=== PATIENT | male | born 1965 | race African-American/Black ===

== ENCOUNTER 2017-04-19 07:08 | Outpatient (CLI) | payer OTHER | END 2017-04-19 07:25 | disposition home or self-care (01) | LOC: LAB 07:08 | DX: I10 Essential (primary) hypertension (principal); M54.5 Low back pain; E55.9 Vitamin D deficiency, unspecified; E78.9 Disorder of lipoprotein metabolism, unspecified; N41.9 Inflammatory disease of prostate, unspecified; E11.51 Type 2 diabetes mellitus with diabetic peripheral angiopathy without gangrene; E11.9 Type 2 diabetes mellitus without complications; E11.42 Type 2 diabetes mellitus with diabetic polyneuropathy; F41.8 Other specified anxiety disorders ==

== ENCOUNTER 2017-07-26 07:10 | Outpatient (CLI) | payer OTHER | END 2017-07-26 07:20 | disposition home or self-care (01) | LOC: LAB 07:10 | DX: I10 Essential (primary) hypertension (principal); M54.5 Low back pain; E55.9 Vitamin D deficiency, unspecified; E78.9 Disorder of lipoprotein metabolism, unspecified; N41.9 Inflammatory disease of prostate, unspecified; E11.51 Type 2 diabetes mellitus with diabetic peripheral angiopathy without gangrene; F41.9 Anxiety disorder, unspecified ==

== ENCOUNTER 2017-11-01 07:07 | Outpatient (CLI) | payer OTHER | END 2017-11-01 10:11 | disposition home or self-care (01) | LOC: LAB 07:07 | DX: I10 Essential (primary) hypertension (principal); M54.5 Low back pain; E55.9 Vitamin D deficiency, unspecified; N41.9 Inflammatory disease of prostate, unspecified; E11.51 Type 2 diabetes mellitus with diabetic peripheral angiopathy without gangrene; E11.42 Type 2 diabetes mellitus with diabetic polyneuropathy; F41.8 Other specified anxiety disorders; E78.89 Other lipoprotein metabolism disorders ==

== ENCOUNTER → 2018-01-31 | Outpatient (CLI) | payer OTHER ==
[~2018-01-31] MED LIST: CLARITIN10 MG PO; ZANTAC300 MG PO
== END | disposition home or self-care (01) ==
LOC: LAB 07:16
DX: I10 Essential (primary) hypertension (principal); M54.5 Low back pain; E55.9 Vitamin D deficiency, unspecified; E78.89 Other lipoprotein metabolism disorders; E11.51 Type 2 diabetes mellitus with diabetic peripheral angiopathy without gangrene; E11.42 Type 2 diabetes mellitus with diabetic polyneuropathy; F41.8 Other specified anxiety disorders; N41.8 Other inflammatory diseases of prostate

== ENCOUNTER 2018-02-18 08:34 | Outpatient (CLI) | payer OTHER ==
[~2018-02-18] VITALS: Ht 152.4 cm; Wt 86.2 kg
[2018-02-18] MEDS ORDERED: CLARITIN10 MG PO (12:36)
[2018-02-18] MEDS ORDERED: ZANTAC300 MG PO (12:36)
== END 2018-02-18 08:55 | disposition home or self-care (01) ==
LOC: OFIC 805 08:34
DX: J31.0 Chronic rhinitis (principal); J37.0 Chronic laryngitis; J34.2 Deviated nasal septum; R05 Cough; H90.3 Sensorineural hearing loss, bilateral

== ENCOUNTER 2018-04-18 07:37 | Outpatient (CLI) | payer OTHER | END 2018-04-18 08:39 | disposition home or self-care (01) | LOC: LAB 07:37 | DX: E11.42 Type 2 diabetes mellitus with diabetic polyneuropathy (principal); E11.51 Type 2 diabetes mellitus with diabetic peripheral angiopathy without gangrene; E11.9 Type 2 diabetes mellitus without complications; F41.8 Other specified anxiety disorders; M54.5 Low back pain; E78.9 Disorder of lipoprotein metabolism, unspecified; I11.9 Hypertensive heart disease without heart failure; E11.319 Type 2 diabetes mellitus with unspecified diabetic retinopathy without macular edema ==

== ENCOUNTER 2018-07-11 07:41 | Outpatient (CLI) | payer OTHER | END 2018-07-11 07:51 | disposition home or self-care (01) | LOC: LAB 07:41 | DX: E11.42 Type 2 diabetes mellitus with diabetic polyneuropathy (principal); E11.51 Type 2 diabetes mellitus with diabetic peripheral angiopathy without gangrene; E11.9 Type 2 diabetes mellitus without complications; F41.8 Other specified anxiety disorders; M54.5 Low back pain; E78.89 Other lipoprotein metabolism disorders; I11.9 Hypertensive heart disease without heart failure; E11.319 Type 2 diabetes mellitus with unspecified diabetic retinopathy without macular edema ==

== ENCOUNTER 2018-10-10 07:33 | Outpatient (CLI) | payer OTHER | END 2018-10-10 07:46 | disposition home or self-care (01) | LOC: LAB 07:33 | DX: E11.42 Type 2 diabetes mellitus with diabetic polyneuropathy (principal); E11.51 Type 2 diabetes mellitus with diabetic peripheral angiopathy without gangrene; E11.9 Type 2 diabetes mellitus without complications; F41.9 Anxiety disorder, unspecified; M54.5 Low back pain; E78.9 Disorder of lipoprotein metabolism, unspecified; I11.9 Hypertensive heart disease without heart failure; E11.319 Type 2 diabetes mellitus with unspecified diabetic retinopathy without macular edema; Z79.84 Long term (current) use of oral hypoglycemic drugs ==

== ENCOUNTER 2019-01-16 07:27 | Outpatient (CLI) | payer OTHER | END 2019-01-16 07:31 | disposition home or self-care (01) | LOC: LAB 07:27 | DX: E11.42 Type 2 diabetes mellitus with diabetic polyneuropathy (principal); E11.51 Type 2 diabetes mellitus with diabetic peripheral angiopathy without gangrene; F41.8 Other specified anxiety disorders; M54.5 Low back pain; E78.49 Other hyperlipidemia; E11.319 Type 2 diabetes mellitus with unspecified diabetic retinopathy without macular edema; Z79.84 Long term (current) use of oral hypoglycemic drugs; N41.0 Acute prostatitis ==

== ENCOUNTER → 2019-04-17 07:07 | Outpatient (CLI) | payer OTHER | END | disposition home or self-care (01) | LOC: LAB 07:07 | DX: E11.42 Type 2 diabetes mellitus with diabetic polyneuropathy (principal); E11.51 Type 2 diabetes mellitus with diabetic peripheral angiopathy without gangrene; F41.8 Other specified anxiety disorders; M54.5 Low back pain; E78.89 Other lipoprotein metabolism disorders; I11.9 Hypertensive heart disease without heart failure; E11.319 Type 2 diabetes mellitus with unspecified diabetic retinopathy without macular edema; Z79.84 Long term (current) use of oral hypoglycemic drugs; N41.0 Acute prostatitis ==

== ENCOUNTER 2019-07-17 07:30 | Outpatient (CLI) | payer OTHER | END 2019-07-17 07:41 | disposition home or self-care (01) | LOC: LAB 07:30 | DX: E11.42 Type 2 diabetes mellitus with diabetic polyneuropathy (principal); E11.51 Type 2 diabetes mellitus with diabetic peripheral angiopathy without gangrene; F41.8 Other specified anxiety disorders; M54.5 Low back pain; E78.89 Other lipoprotein metabolism disorders; E11.319 Type 2 diabetes mellitus with unspecified diabetic retinopathy without macular edema; Z79.84 Long term (current) use of oral hypoglycemic drugs; N41.0 Acute prostatitis ==

== ENCOUNTER 2019-07-19 07:32 | Outpatient (CLI) | payer OTHER | END 2019-07-19 07:42 | disposition home or self-care (01) | LOC: LAB 07:32 | DX: E11.42 Type 2 diabetes mellitus with diabetic polyneuropathy (principal); E11.51 Type 2 diabetes mellitus with diabetic peripheral angiopathy without gangrene; F41.8 Other specified anxiety disorders; M54.5 Low back pain; E78.89 Other lipoprotein metabolism disorders; I11.9 Hypertensive heart disease without heart failure; E11.319 Type 2 diabetes mellitus with unspecified diabetic retinopathy without macular edema; Z79.84 Long term (current) use of oral hypoglycemic drugs; N41.0 Acute prostatitis ==

== ENCOUNTER → 2019-10-16 08:26 | Outpatient (CLI) | payer OTHER | END | disposition home or self-care (01) | LOC: LAB 08:26 | PROVIDERS: ATTEND Internal Medicine | DX: E11.42 Type 2 diabetes mellitus with diabetic polyneuropathy (principal); E11.51 Type 2 diabetes mellitus with diabetic peripheral angiopathy without gangrene; F41.8 Other specified anxiety disorders; M54.5 Low back pain; E78.89 Other lipoprotein metabolism disorders; I11.9 Hypertensive heart disease without heart failure; E11.319 Type 2 diabetes mellitus with unspecified diabetic retinopathy without macular edema; Z79.84 Long term (current) use of oral hypoglycemic drugs; N41.0 Acute prostatitis ==

== ENCOUNTER → 2020-01-22 08:03 | Outpatient (CLI) | payer OTHER | END | disposition home or self-care (01) | LOC: LAB 08:03 | PROVIDERS: ATTEND Internal Medicine | DX: E11.42 Type 2 diabetes mellitus with diabetic polyneuropathy (principal); E11.51 Type 2 diabetes mellitus with diabetic peripheral angiopathy without gangrene; F41.8 Other specified anxiety disorders; M54.5 Low back pain; E78.89 Other lipoprotein metabolism disorders; I11.9 Hypertensive heart disease without heart failure; E11.319 Type 2 diabetes mellitus with unspecified diabetic retinopathy without macular edema; Z79.84 Long term (current) use of oral hypoglycemic drugs; N41.0 Acute prostatitis ==

== ENCOUNTER 2020-04-29 07:05 | Outpatient (CLI) | payer OTHER | END 2020-04-29 07:14 | disposition home or self-care (01) | LOC: LAB 07:05 | PROVIDERS: ATTEND Internal Medicine | DX: E11.42 Type 2 diabetes mellitus with diabetic polyneuropathy (principal); E11.51 Type 2 diabetes mellitus with diabetic peripheral angiopathy without gangrene; F41.8 Other specified anxiety disorders; M54.5 Low back pain; E78.89 Other lipoprotein metabolism disorders; I11.9 Hypertensive heart disease without heart failure; E11.319 Type 2 diabetes mellitus with unspecified diabetic retinopathy without macular edema; Z79.84 Long term (current) use of oral hypoglycemic drugs; N41.0 Acute prostatitis ==

== ENCOUNTER 2020-08-07 08:36 | Outpatient (CLI) | payer OTHER | END 2020-08-07 08:47 | disposition home or self-care (01) | LOC: LAB 08:36 | PROVIDERS: ATTEND Internal Medicine | DX: E11.42 Type 2 diabetes mellitus with diabetic polyneuropathy (principal); E11.51 Type 2 diabetes mellitus with diabetic peripheral angiopathy without gangrene; E11.9 Type 2 diabetes mellitus without complications; F41.9 Anxiety disorder, unspecified; M54.5 Low back pain; E78.9 Disorder of lipoprotein metabolism, unspecified; I11.9 Hypertensive heart disease without heart failure; E11.319 Type 2 diabetes mellitus with unspecified diabetic retinopathy without macular edema; N41.0 Acute prostatitis; Z79.84 Long term (current) use of oral hypoglycemic drugs ==